=== PATIENT | female | born 1950 | race Caucasian/White ===

== ENCOUNTER 2023-12-12 23:36 | Emergency (ER) | payer BC ==
[~2023-12-12] VITALS: Ht 160 cm; Wt 86.2 kg
[2023-12-12 23:44] VITALS: BP_SYST 133; PULSE 96; RESP 18; TEMP 96.8; O2SAT 97
[2023-12-12] MEDS: ACETAMINOPHEN/CODEINE 300 MG-30 MG TABLET PO ONE (23:54)
[2023-12-13] MEDS ORDERED: NALOXONE HCL 0.4 MG/ML AMP (NARCAN) IVP PRN
[2023-12-13] MEDS ORDERED: BACITRACIN 1 GM OINT TP ONE (00:41)
[2023-12-13] MEDS ORDERED: ACET1TAB93 PO (01:01)
[2023-12-13 01:10] VITALS: BP_SYST 133; PULSE 96; RESP 18; TEMP 96.8; O2SAT 96
== END 2023-12-13 01:10 | disposition home or self-care (01) ==
LOC: SED 23:36
DX: S62.102A Fracture of unspecified carpal bone, left wrist, initial encounter for closed fracture (principal); W18.39XA Other fall on same level, initial encounter; Y93.89 Activity, other specified; Y92.89 Other specified places as the place of occurrence of the external cause; Y99.8 Other external cause status
CPT/HCPCS: 99283